=== PATIENT | male | born 1955 | race Caucasian/White ===

== ENCOUNTER 2020-09-26 08:16 | Inpatient (IN) | payer OTHER ==
[~2020-09-26] VITALS: Ht 177.8 cm; Wt 81.6 kg
[2020-09-26 08:26] VITALS: BP 143/69
[2020-09-26 09:17] LABS: ABSOLUTE NEUTROPHILS 8.3 thou/uL (1.4-8.2); BASOPHILS 0.5 % (0.0-2.0); EOSINOPHILS 1.1 % (0.0-3.0); HEMATOCRIT 33.7 % (42.0-52.0); HEMOGLOBIN 11.5 gm/dL (14.0-18.0); LYMPHOCYTES 8.8 % (24.0-44.0); MCH 30.4 pg (26.0-34.0); MCHC 34.3 g/dL (28.0-37.0); MCV 88.8 fL (80.0-100.0); MONOCYTES 6.3 % (1.0-8.0); PLATELET COUNT 241 thou/uL (150-400); POLYS 83.3 % (36.0-66.0); RBC 3.79 mil/uL (4.50-6.00); RDW 15.6 % (10.5-14.5)
[2020-09-26 09:23] LABS: URINE BILIRUBIN NEGATIVE (Negative); URINE BLOOD NEGATIVE (Negative); URINE CLARITY CLEAR; URINE COLOR YELLOW; URINE GLUCOSE-RANDOM* 3+ (Negative); URINE KETONES NEGATIVE (Negative); URINE LEUKOCYTES-REFLEX NEGATIVE (Negative); URINE NITRITE-REFLEX NEGATIVE (Negative); URINE PROTEIN (DIPSTICK) 3+ (Negative); URINE UROBILINOGEN 0.2 E.U./dl (0.2-1.0)
[2020-09-26 09:32] LABS: ANION GAP 10 mmol/L (7-16); BUN 27 mg/dL (7-18); CALCIUM 9.2 mg/dL (8.5-10.1); CHLORIDE 103 mmol/L (98-107); CO2 27 mmol/L (21-32); CREATININE 2.4 mg/dL (0.7-1.3); GLUCOSE 215 mg/dL (74-106); POTASSIUM 4.2 mmol/L (3.5-5.1); SODIUM 140 mmol/L (136-145)
[2020-09-26 09:38] LABS: ALBUMIN 3.3 g/dL (3.4-5.0); SGOT 13 U/L (15-37); SGPT 20 U/L (30-65); TOTAL PROTEIN 6.8 g/dL (6.4-8.2); TROPONIN-I <0.06 ng/mL (<0.06)
[2020-09-26 09:39] LABS: AMP/METHAMP Negative (Negative); BARBITURATES Negative (Negative); BENZODIAZEPINES POSITIVE (Negative); COCAINE Negative (Negative); METHADONE Negative (Negative); OPIATES POSITIVE (Negative); PCP Negative (Negative)
[2020-09-26 09:42] LABS: AMORPHOUS URATES Few /LPF (None Seen); BACTERIA-REFLEX 1-9 Few /HPF (None Seen); CASTS None Seen /LPF (None Seen); SQUAMOUS 0-3 Few /LPF (0-3); URINE RBC None Seen /HPF (NONE SEEN); URINE WBC-REFLEX None Seen /HPF (0-5)
--- NOTE | 2020-09-26 12:23 | NUR ---
NOTES FROM CONVERSATION WITH PT , RECEIVED PHONE CONSENT W/ MARIA C RN FOR RECORDS FROM [facility] FELL , WENT TO ED- [facility], RECEIVED XRAY SENT HOME- ORDERED LIDOCAINE PATCHES COMBATIVE THIS MORNING, PT WANTED TO GO TO ED, PT TOOK MINI STROKES, INCREASED MEDS RECENTLY SISTER GAVE PT XANAX- UNKNOWN AMOUNT, CANNOT FIND SUPPLY MEMORY PROBLEMS HAVE BEEN GOING ON, IN HOSPITAL 2 WKS AGO RECEIVED MRI, HAS NEUROLOGIST- AT [place] BEGINS WITH AN "N"
[2020-09-26 13:30] VITALS: BP 159/73
[2020-09-26 13:44] VITALS: BP 159/73
[2020-09-26 15:35] VITALS: BP 131/60
--- NOTE | 2020-09-26 16:00 | EKG ---
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
[2020-09-26] MEDS ORDERED: METFORMIN HCL500 M3 PO (16:59)
[2020-09-26] MEDS ORDERED: ZESTRIL40 MG PO (17:00)
[2020-09-26] MEDS ORDERED: HYDRALAZINE 5050 MG PO (17:00)
[2020-09-26] MEDS ORDERED: TAMSULOSIN HCL0.4 MG PO (17:01)
[2020-09-26] MEDS ORDERED: JARDIANCE10 MG PO (17:01)
[2020-09-26] MEDS ORDERED: HYDROCHLOROTHIA25 M1 PO (17:02)
[2020-09-26] MEDS ORDERED: NORVASC10 MG PO (17:03)
[2020-09-26] MEDS ORDERED: ATORVASTATIN CA80 MG PO (17:04)
[2020-09-26] MEDS ORDERED: CARVEDILOL12.5 MG PO (17:04)
[2020-09-26] MEDS ORDERED: ASA81BEC PO (17:04)
[2020-09-26] MEDS ORDERED: VITAMIN B122500 MCG PO (17:05)
[2020-09-26] MEDS ORDERED: VITAMIN D325 MC3 PO (17:06)
[2020-09-26 19:44] VITALS: BP 161/82
--- NOTE | 2020-09-27 | NUR ---
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
[2020-09-27 06:01] LABS: CALCIUM 8.7 mg/dL (8.5-10.1); CREATININE 2.1 mg/dL (0.7-1.3); POTASSIUM 3.5 mmol/L (3.5-5.1)
--- NOTE | 2020-09-27 08:15 | NUR ---
Assumed pt care at 0700.Pt in bed very impulsive and restless.4 sides up for safety and one of the techs stay with pt in the room.Pt constantly getting out of bed and setting off bed alarm.Pulled piv and stated that he wanted to go home.Rn reoriented pt but not successful.Security called x2 to prevent falling.Dr Elizabeth and pt's notified.Received return call from Dr Elizabeth and encouraged pt to stay till seen by him but pt refused.AMA signed by pt. Security called to escort pt out of the hospital till arrived.Pt left at 0815 accompanied by security.
[2020-09-27 08:55] VITALS: BP 185/88
== END 2020-09-27 08:15 | disposition left against medical advice (07) | DRG 682 ==
LOC: ER 08:16 → 4S 13:23 → EROBS 13:23 → 4S 13:53
PROVIDERS: Emergency Medicine; ADMIT Hospitalist; ATTEND Hospitalist
DX: N17.9 Acute kidney failure, unspecified (principal); G92 Toxic encephalopathy; G89.29 Other chronic pain; Z53.29 Procedure and treatment not carried out because of patient's decision for other reasons; T50.905A Adverse effect of unspecified drugs, medicaments and biological substances, initial encounter; Y92.89 Other specified places as the place of occurrence of the external cause
CPT/HCPCS: 10195